=== PATIENT | male | born 1935 | race Caucasian/White ===

== ENCOUNTER → 2016-12-21 | Outpatient (CLI) | payer MEDICARE, OTHER ==
[~2016-12-21] MED LIST: ADULT LOW DOSE81 MG PO; CITRACAL + BON1 EACH PO; COMTAN200 MG PO; FLOMAX0.4 MG PO; OSTEO BI-FLEX1 EAC1 PO; SINEMET 25-1001 TAB PO; VITAMIN B-121000 MCG PO; VITAMIN C1000 M1 PO; ZOCOR40 MG PO
== END | disposition short-term general hospital (02) ==
LOC: CLNEUR 09:52
DX: G20 Parkinson's disease (principal)

== ENCOUNTER 2017-01-24 13:39 | Day surgery (SDC) | payer MEDICARE, OTHER | END 2017-01-24 14:43 | disposition short-term general hospital (02) | LOC: SURGOP 13:39 | PROC: 0TJB8ZZ Inspection of Bladder, Via Natural or Artificial Opening Endoscopic (ICD-10-PCS; principal; 2017-01-24) | DX: N21.1 Calculus in urethra (principal); N21.0 Calculus in bladder; Z87.442 Personal history of urinary calculi ==

== ENCOUNTER 2017-01-28 21:35 | Observation (INO) | payer MEDICARE, OTHER ==
[~2017-01-28] VITALS: Ht 177.8 cm; Wt 66.7 kg
[2017-01-28] MEDS ORDERED: SINEMET 25-1001 TAB PO (23:54)
[2017-01-28] MEDS ORDERED: CITRACAL + BON1 EACH PO (23:55)
[2017-01-28] MEDS ORDERED: COMTAN200 MG PO (23:56)
[2017-01-28] MEDS ORDERED: ADULT LOW DOSE81 MG PO (23:58)
[2017-01-29] MEDS ORDERED: VITAMIN C1000 M1 PO (00:01)
[2017-01-29] MEDS ORDERED: OSTEO BI-FLEX1 EAC1 PO (00:02)
[2017-01-29] MEDS ORDERED: FLOMAX0.4 MG PO (00:03)
[2017-01-29] MEDS ORDERED: ZOCOR40 MG PO (00:03)
[2017-01-29] MEDS ORDERED: VITAMIN B-121000 MCG PO (00:04)
== END 2017-01-30 10:35 ==
LOC: ER 21:35 → OBS 01-29 00:40 → IP 01-29 00:40
PROVIDERS: ADMIT Family Medicine
DX: R41.82 Altered mental status, unspecified (principal); R53.1 Weakness; R15.9 Full incontinence of feces; G20 Parkinson's disease; T50.901A Poisoning by unspecified drugs, medicaments and biological substances, accidental (unintentional), initial encounter; G31.9 Degenerative disease of nervous system, unspecified; Z85.46 Personal history of malignant neoplasm of prostate; Z79.82 Long term (current) use of aspirin; Z79.899 Other long term (current) drug therapy; Z98.890 Other specified postprocedural states
CPT/HCPCS: G0378

== ENCOUNTER → 2017-02-21 | Outpatient (CLI) | payer MEDICARE, OTHER | END | disposition short-term general hospital (02) | LOC: CLUROL 10:44 | DX: N20.0 Calculus of kidney (principal); R35.0 Frequency of micturition; R39.15 Urgency of urination; R32 Unspecified urinary incontinence ==